=== PATIENT | male | born 1960 ===

== ENCOUNTER 2020-11-09 08:11 | Day surgery (SDC) | payer OTHER ==
[~2020-11-09] VITALS: Ht 182.9 cm; Wt 90.6 kg
[2020-11-09 08:31] VITALS: BP 101/81; PULSE 90; TEMP 98.4
[2020-11-09] MEDS ORDERED: PRINIVIL2.5 MG PO (08:39)
[2020-11-09] MEDS ORDERED: TOPROL XL100 MG PO (08:39)
[2020-11-09] MEDS ORDERED: METOPROLOL TART75 MG PO ×2 (08:40→08:42)
[2020-11-09] MEDS ORDERED: LOPRESSOR100 MG PO (08:41)
[2020-11-09] MEDS ORDERED: ASPIRIN E.C. 8181 MG PO (08:42)
[2020-11-09] MEDS ORDERED: LIPITOR 80MG80 MG PO (08:43)
[2020-11-09] MEDS ORDERED: PLAVIX 75MG TAB75 MG PO (08:43)
[2020-11-09] MEDS ORDERED: FLOMAX 0.40.4 MG/CAP PO (08:44)
[2020-11-09] MEDS ORDERED: VITAMIN D31000 I1 PO (08:45)
[2020-11-09] MEDS ORDERED: THE MEDICINE S200 M2 PO (08:45)
--- NOTE | 2020-11-09 08:46 | NUR ---
TO RM 4 AT 0815- CALL LIGHT IN REACH
[2020-11-09 10:10] VITALS: BP 101/72; PULSE 71; TEMP 98
--- NOTE | 2020-11-09 10:10 | NUR ---
PATIENT TRANSPORTED PER CART FROM GI SUITE TO BAY 4 ACCOMPANIED BY OMER RN. PATIENT AMBULATED FROM CART TO CHAIR WITH 2 ASSIST. SLOW STEADY GAIT. MONITORS APPLIED. VSS ON ROOM AIR. AT CHAIR SIDE. PATIENT TALKS WITH STAFF.
[2020-11-09 10:15] VITALS: BP 89/76; PULSE 71
--- NOTE | 2020-11-09 10:15 | NUR ---
VSS ON ROOM AIR. PATIENT GIVEN MUFFIN AND JUICE . PATIENT DENIES DISCOMFORT AND NAUSEA. TALKING WITH .
[2020-11-09 10:30] VITALS: BP 92/67; PULSE 63
--- NOTE | 2020-11-09 10:30 | NUR ---
VSS ON ROOM AIR. DR COY IN ROOM AND SPEAKS WITH PATIENT.
[2020-11-09 10:45] VITALS: BP 102/73; PULSE 63
--- NOTE | 2020-11-09 10:45 | NUR ---
VSS ON ROOM AIR. PATIENT DENIES DISCOMFORT AND NAUSEA. TALKING WITH . IV SITE DC'D WITH CATHETER TIP INTACT. PRESSURE AND BANDAGE APPLIED.
--- NOTE | 2020-11-09 10:55 | NUR ---
DISCHARGE INSTRUCTIONS GIVEN VERBAL AND DISCHARGE PACKET PROVIDED. QUESTIONS ANSWERED AND PATIENT AND VOICE UNDERSTANDING. PATIENT GIVEN LOW FIBER DIET INSTRUCTIONS. PATIENT CHANGES INTO STREET CLOTHES.
--- NOTE | 2020-11-09 11:00 | NUR ---
PATIENT DISCHARGED PER WHEEL CHAIR ACCOMPANIED BY NURSE TO PRIVATE VECHILE DRIVEN BY .
== END 2020-11-09 11:00 | disposition home or self-care (01) ==
LOC: SDCO 08:11
DX: Z12.11 Encounter for screening for malignant neoplasm of colon (principal); D12.2 Benign neoplasm of ascending colon; D12.8 Benign neoplasm of rectum; I10 Essential (primary) hypertension; I25.2 Old myocardial infarction; K21.9 Gastro-esophageal reflux disease without esophagitis; M19.90 Unspecified osteoarthritis, unspecified site; E78.5 Hyperlipidemia, unspecified; Z86.010 Personal history of colon polyps; Z95.1 Presence of aortocoronary bypass graft; Z79.82 Long term (current) use of aspirin; Z79.899 Other long term (current) drug therapy; Z79.02 Long term (current) use of antithrombotics/antiplatelets; Z20.822 Contact with and (suspected) exposure to COVID-19
CPT/HCPCS: J7120

== ENCOUNTER 2021-06-28 08:52 | Day surgery (SDC) | payer OTHER ==
[~2021-06-28] VITALS: Ht 182.9 cm; Wt 90.4 kg
[~2021-06-28 08:52] MED LIST: ASPIRIN E.C. 8181 MG PO; FLOMAX 0.40.4 MG/CAP PO; LIPITOR 80MG80 MG PO; LOPRESSOR100 MG PO; METOPROLOL TART75 MG PO; PLAVIX 75MG TAB75 MG PO; PRINIVIL2.5 MG PO; THE MEDICINE S200 M2 PO; TOPROL XL100 MG PO; VITAMIN D31000 I1 PO
[2021-06-28] MEDS ORDERED: NATURAL ST. JO300 MG PO (09:23)
[2021-06-28 09:24] VITALS: BP 114/79; PULSE 61; TEMP 97.5
[2021-06-28] MEDS ORDERED: PRINIVIL2.5 MG PO (09:24)
[2021-06-28 11:05] VITALS: BP 89/69; PULSE 60; TEMP 97
--- NOTE | 2021-06-28 11:05 | NUR ---
The patient arrived back to [facility] from the endoscopy suite at this time. The patient ambulated from the cart to the recliner in his room with the stand by assistance of one nurse and appeared to tolerate the activity well. Post procedure vital signs were started at this time. The patient agrees to try a muffin and orange juice. Call light is within reach. Family at bedside. Will continue to monitor the patient.
--- NOTE | 2021-06-28 11:20 | NUR ---
The patient has finished his food and drink and appeared to tolerate both well. Vital signs appear stable. The patient's family remains at his bedside. The patient is waiting to speak with the doctor regarding the findings of the procedure so he can be discharged home.
[2021-06-28 11:21] VITALS: BP 119/75; PULSE 55
[2021-06-28 11:35] VITALS: BP 116/76; PULSE 57
--- NOTE | 2021-06-28 11:35 | NUR ---
The patient is sitting up in bed and appears to be resting comfortably at this time. The patient denies wanting anything further to eat to drink. Family remains at his bedside. Call light is within reach. Will continue to monitor the patient.
[2021-06-28 11:50] VITALS: BP 113/83; PULSE 50
--- NOTE | 2021-06-28 11:50 | NUR ---
Dr. Riley is at the patient's bedside discussing the findings of the procedure with the patient.
--- NOTE | 2021-06-28 12:00 | NUR ---
Discharge instructions were reviewed with the patient and his family at this time. They all verbalized understanding and have no questions for the nurse at this time. The patient's IV to his right hand was removed and a pressure dressing was applied to the site. The nurse instructed the patient to get dressed and notify the staff when he is ready to be escorted out.
--- NOTE | 2021-06-28 12:10 | NUR ---
The patient was escorted out via wheelchair to a private vehicle by SHON Butt. The patient's belongings and discharge paperwork were sent with him. The patient's family is presen to drive him home.
== END 2021-06-28 12:10 | disposition home or self-care (01) ==
LOC: SDCO 08:52
DX: Z12.11 Encounter for screening for malignant neoplasm of colon (principal); K62.1 Rectal polyp; K57.30 Diverticulosis of large intestine without perforation or abscess without bleeding
CPT/HCPCS: J2704; J7120